=== PATIENT | female | born 1975 | race African-American/Black ===

== ENCOUNTER 2018-08-17 09:52 | Emergency (ER) | payer MEDICAID ==
[~2018-08-17] VITALS: Ht 162.6 cm; Wt 64.0 kg
[~2018-08-17 09:52] MED LIST: ASPI-986
[2018-08-17 11:13] LABS: BASOPHILS % 0.8 % (0.0-2.0); EOSINOPHILS % 4.9 % (0.0-5.0); HEMOGLOBIN. 12.4 g/dL (12.0-16.0); LYMPHOCYTES % 37.7 % (20.0-50.0); MEAN CORPUSCULAR HEMOGLOBIN 33.1 pg (28.0-32.0); MEAN CORPUSCULAR VOLUME 98.8 fL (81.0-99.0); MEAN PLATELET VOLUME 9.9 fl (7.4-10.4); MONOCYTES % 11.6 % (2.0-8.0); PLATELET 158 x1000/uL (130-400); RED BLOOD CELL COUNT 3.74 mill/uL (4.2-5.4); RED CELL DISTRIBUTION WIDTH 12.8 % (11.6-14.6)
[2018-08-17 11:18] LABS: CHLORIDE 109 mEq/L (98-107)
[2018-08-17 13:53] VITALS: BP 112/65
== END 2018-08-17 13:50 | disposition home or self-care (01) ==
LOC: ER 09:52
DX: R55 Syncope and collapse (principal); I49.9 Cardiac arrhythmia, unspecified
CPT/HCPCS: 36415; 84484; 93005; 99284